=== PATIENT | male | born 1940 | race Caucasian/White ===

== ENCOUNTER 2020-01-07 22:28 | Inpatient (IN) | payer MEDICARE, OTHER ==
[~2020-01-07 22:28] MED LIST: Iopamidol-370 76% 500 ML 1 ML ONE
[2020-01-07] MEDS ORDERED: Ondansetron PF 4 MG/2 ML Vial ONE (22:59)
[2020-01-07 23:01] LABS: #Lymphocytes 0.7 thou/uL (1.20-3.40); #Monocytes 0.4 thou/uL (0.11-0.59); #Neutrophils 7.9 thou/uL (1.40-6.50); %Basophils 0.2 % (0.0-1.0); %Eosinophils 0.2 % (0.0-10.0); %Lymphocytes 8.1 % (21.0-51.0); %Monocytes 4.2 % (0.0-10.0); %Neutrophils 87.3 % (42.0-75.0); Hemoglobin 13.7 g/dL (14.0-18.0); Mean Corpuscular HGB CONC 32.4 g/dL (32.0-36.0); Mean Corpuscular Hemoglobin 31.7 pg (27.0-31.0); Mean Corpuscular Volume 97.8 fL (78.0-98.0); Mean Platelet Volume 7.5 fL (7.4-10.4); Platelet Count 215 thou/uL (130-400); RBC Distribution Width 12.8 % (11.5-14.5); Red Blood Cell (RBC) Count 4.32 mill/uL (4.70-6.10); White Blood Cell (WBC) Count 9.1 thou/uL (4.8-10.8)
[2020-01-07 23:21] LABS: ALT (SGPT) 7 U/L (8-55); AST (SGOT) 13 U/L (5-34); Albumin 4.1 g/dL (3.4-4.8); Alkaline Phosphatase 143 U/L (40-110); Anion Gap 15 mmol/L (10-20); BUN (Urea Nitrogen) 34 mg/dL (8.4-25.7); Bilirubin, Total 1.6 mg/dL (0.2-1.2); Calc. Creatinine Clearance 0 mL/min (70-130); Calcium 9.1 mg/dL (7.8-10.44); Carbon Dioxide 30 mmol/L (23-31); Chloride 94 mmol/L (98-107); Estimated GFR-MDRD 37; Globulin 3.4 g/dL (2.4-3.5); Glucose 266 mg/dL (83-110); Potassium 4.3 mmol/L (3.5-5.1); Protein, Total 7.5 g/dL (5.8-8.1); Sodium 135 mmol/L (136-145)
[2020-01-07] MEDS ORDERED: Succinylcholine Chloride 20 MG/ML 10 ml SYRINGE FS ONE (23:21)
[2020-01-07] MEDS ORDERED: fentaNYL Citrate/PF 2,000 MCG in Sodium Chloride 0.9% 60 ML IV SCH (23:37)
[2020-01-07] MEDS ORDERED: Fentanyl 100 MCG/2 ML VIAL ONE (23:38)
[2020-01-07] MEDS ORDERED: Piperacillin/Tazobactam 4.5 GM VIAL ONE (23:41)
[2020-01-07] MEDS ORDERED: Vancomycin 1 GM/200 ML BAG ONE (23:41)
[2020-01-07] MEDS ORDERED: Midazolam HCl 5 mg/ml Vial ONE (23:42)
[2020-01-07] MEDS ORDERED: Norepinephrine 8 MG/0.9% NS 250 ML ONE (23:44)
[2020-01-07] MEDS ORDERED: Pantoprazole 40 MG VIAL ONE (23:56)
[2020-01-08 00:05] LABS: Actual Bicarbonate (HCO3a) 20.2 mEq/L (22-28); Analyzer IN Cardio ER; Base Excess (BEa) -9.4 mEq/L (-2.0 to +3.0); Carboxyhemoglobin (COHb) 0.8 gm% (0.0-3.0); Hemoglobin (Hb) 12.5 g/dL (14.0-18.0); O2 Tension (PaO2), arterial 93.5 mmHg (> 70.0); Potassium - ABG Lab 3.92 mmol/L (3.70-5.30)
[2020-01-08] MEDS ORDERED: methylPREDNISolone Sod Succ/PF 125 MG/2 ML VIAL ONE (00:06)
[2020-01-08] MEDS ORDERED: diphenhydrAMINE 50 MG/ML VIAL ONE (00:06)
[2020-01-08] MEDS ORDERED: Famotidine/PF 20 mg/2ml Vial ONE (00:06)
[2020-01-08] MEDS ORDERED: methylPREDNISolone Sod Succ 40 MG VIAL ONE (00:07)
[2020-01-08 00:15] LABS: pH, Arterial 7.14 (7.35-7.45)
[2020-01-08] MEDS ORDERED: Pantoprazole 80 MG, Admixture Fee 1 EACH in Sodium Chloride 0.9% 100 ML IVPB SCH (00:15)
[2020-01-08 00:16] LABS: ALV-art Gradient 543.125 (0-20); CO2 Tension 61.1 mmHg (35.0-45.0); Puncture Site RBA
[2020-01-08] MEDS ORDERED: Magnesium 2 GM/50 ML BAG (IN WATER) ONE (00:31)
[2020-01-08 00:36] LABS: Bilirubin Negative (Negative); Blood, Urine Negative (Negative); Clarity Turbid (Clear); Glucose, Urine (Dipstick) 50 mg/dL (Negative); Leukocyte Negative Leu/uL (Negative); Nitrite Negative (Negative); Protein, Urine (Dipstick) 30 mg/dL (Neg-Trace); Squamous Epithelial 0-3 HPF (0-3); Urobilinogen 3 mg/dL (Less than 2)
[2020-01-08 00:37] LABS: Bacteria/HPF 1+ HPF (None Seen)
[2020-01-08 01:43] LABS: INR-International Normal Ratio 1.8; PTT 28.4 sec (22.9-36.1); Prothrombin Time 20.4 sec (12.0-14.7)
[2020-01-08] MEDS ORDERED: HUMAN PROTHROMBIN COMPLX IV SCH (01:45)
[2020-01-08] MEDS ORDERED: HUM PROTHROMBIN CPLX IV SCH (01:45)
[2020-01-08] MEDS ORDERED: [UNRECOGNIZED DRUG - OTHER] IV SCH (01:45)
[2020-01-08 02:12] LABS: Hemoglobin 12.3 g/dL (14.0-18.0)
[2020-01-08 02:13] LABS: Platelet Count 199 thou/uL (130-400)
[2020-01-08] MEDS ORDERED: Acetaminophen 650 MG Suppository PR PRN (03:18)
[2020-01-08] MEDS ORDERED: Ondansetron PF 4 MG/2 ML Vial IVP PRN (03:18)
[2020-01-08] MEDS ORDERED: CCU Electrolyte Replacement 1 EACH IVPB ONE (03:18)
[2020-01-08] MEDS ORDERED: Acetaminophen 650 MG/20.3 ML UDCUP PO PRN (03:18)
[2020-01-08] MEDS ORDERED: Ondansetron ODT 4 MG TAB PO PRN (03:18)
[2020-01-08] MEDS ORDERED: SYSTANE 3.5 GM TUBE EA EYE PRN (03:18)
[2020-01-08] MEDS ORDERED: DISCONTINUE PREVIOUS NARCOTIC PAIN MEDICATIONS AND BENZODIAZEPINES FS SCH (03:27)
[2020-01-08] MEDS ORDERED: Fentanyl BOLUS 250 ML IVPB PRN (03:27)
[2020-01-08] MEDS ORDERED: Lorazepam 2 MG/ML VIAL SLOW IVP PRN (03:27)
[2020-01-08] MEDS ORDERED: Morphine 2 MG/ML SYRINGE SLOW IVP PRN (03:27)
[2020-01-08] MEDS ORDERED: Propofol 1,000 MG/100 ML VIAL IV PRN (03:27)
[2020-01-08] MEDS ORDERED: fentaNYL Citrate/PF 2,000 MCG in Sodium Chloride 0.9% 60 ML IV SCH (03:27)
[2020-01-08] MEDS ORDERED: Propofol BOLUS 1,000 MG/100 ML VIAL IV PRN (03:27)
[2020-01-08] MEDS ORDERED: Potassium Phosphate 15 MMOL in Sodium Chloride 0.9% 250 ML 250 ML IV PRN (03:30)
[2020-01-08] MEDS ORDERED: Potassium Phosphate 12 MMOL in Sodium Chloride 0.9% 250 ML 250 ML IV PRN (03:30)
[2020-01-08] MEDS ORDERED: Potassium Phosphate 9 MMOL in Sodium Chloride 0.9% 100 ML IVPB PRN (03:30)
[2020-01-08] MEDS ORDERED: Potassium Chloride 20 MEQ TAB PO PRN (03:30)
[2020-01-08] MEDS ORDERED: Magnesium 2 GM/50 ML 2 GM in Premix Bag 1 BAG IVPB PRN (03:30)
[2020-01-08] MEDS ORDERED: PHOS-NAK 1 PKT PACK PO PRN ×2 (03:30)
[2020-01-08] MEDS ORDERED: Potassium Chloride 40 MEQ in Sodium Chloride 0.9% 250 ML 250 ML IVPB PRN (03:30)
[2020-01-08] MEDS ORDERED: Potassium Chloride 40 MEQ in Premix Bag 1 BAG IVPB PRN (03:30)
[2020-01-08] MEDS ORDERED: Magnesium Oxide 400 MG TAB PO PRN ×2 (03:30)
[2020-01-08] MEDS ORDERED: CCU ELECTROLYTE REPLACEMENT PROTOCOL FS PRN (03:30)
[2020-01-08] MEDS ORDERED: Ventilator Sedation Protocol 1 EACH FS SCH (03:30)
[2020-01-08 03:35] VITALS: BMI 30.6
[2020-01-08] MEDS: Lactated Ringer's 1,000 ML IV SCH ×2 (03:49→12:33)
--- NOTE | 2020-01-08 04:09 | PDOC.FPRHP ---
- History of Present Illness Chief Complaint: SOB History of Present Illness: 79 yo M w/ pmh of parkinson's, dementia, hypotension, HLD, and JANESSA came in with reported dyspnea on BIPAP. Pt clinical picture quickly worsened upon arrival to ER. Per ER doc was quickly intubated. Stated had to suction out 2L gastric/ bloody contents before could succesfully intubate. Pt was intubated upon evaluation. History was obtained from pt . States that about a week ago started having some trouble swallowing. Reports had bout of diarrhea on Saturday which resolved. States that has been constipated the last 3 days but had 2 small BM earlier today. States that ealier today started having lots of trouble not being able to swallow. Didn't eat much other than some broth and crackers. Pt had PNA tx outpatient dx about 5 wks ago. Got 10 days of abx and states had resolved. Saw his PCP around 3:30 that day who said lungs sounded clear. Around supper time 1800 pt stated had little choking spell and pt stated even water he was drinking was coming back up. Pt then started to coughing up brown stuff per and called EMS. ED Course: Phyllis Vicente called quickly after arrival. ROSC obtained. Epi and bicarb given. 2L of gastric contents suctioned prior to intubation. Pt intubated. Started on Vanc and Zosyn. - Allergies/Adverse Reactions Allergies Allergy/AdvReac Type Severity Reaction Status Date / Time clopidogrel [From Plavix] Allergy Unverified 01/07/20 23:37 iodine Allergy Unverified 01/07/20 23:37 Sulfa (Sulfonamide Allergy Unverified 01/07/20 23:37 Antibiotics) - Home Medications Comments: Atorvastatin 20 mg daily , Furosemide 40 mg daily, Tamsulosin .4 mg daily, Buproprion 150 mg daily, Citalopram 10 mg daily, Namenda XR 28 mg daily , Olanzapine 7.5 mg daily, Xarelto 15 mg daily, Midodrine 10 mg TID, Pramipexole .25 mg BID, Rasagiline 1mg daily, Rytary 48.75mg-195mg BID - History This history was obtained from ER records and PMHx: Parkinsons, Dementia, Hypotension, JANESSA, HLD PSHx: R. Knee surgery, Bilateral Shoulder Surgery, Back Surgery, Stent placed in R. leg (long time ago) FHx: Noncontributory Social: Denied any smoking, Reported occasional drinking, denied any illicit drug use - Review of Systems ROS unobtainable: due to endotracheal tube - Vital signs BP: [] HR: [] RR: [] Tmax: [] Pox: []% on [] Wt: [] - Physical Exam -Constitutional: Pt intubated and sedated HEENT: good dention -HEENT: old brown remnant of gastric contents noted in mouth and in gastric tube Neck: supple, trachea midline, no JVD, no thyromegaly -Heart: Sinus tachycardia, no murmurs or gallops noted. Normal rhythm -Lungs: Diffuse crackles and rales noted. Decreased air movement in all lobes. -Abdomen: Severely distended. Hard on palpation. No bowel sounds noted. Musculoskeletal: normal structure -Neurological: Unable to fully assess as patient is intubated and sedated Skin: no rash/lesions, good turgor -Skin: No edema noted Heme/Lymphatic: no unusual bruising or bleeding -Psychiatric: Unable to assess 2/2 intubation. FMR H&P: Results - Labs Result Diagrams: 01/08/20 04:10 01/08/20 04:10 Lab results: WBC 9.1 thou/uL (4.8-10.8) 01/07/20 22:45 Hgb 12.3 g/dL (14.0-18.0) L 01/08/20 01:56 Hct 39.7 % (42.0-52.0) L 01/08/20 01:56 MCV 97.8 fL (78.0-98.0) 01/07/20 22:45 Plt Count 199 thou/uL (130-400) 01/08/20 01:56 Neutrophils % 87.3 % (42.0-75.0) H 01/07/20 22:45 ABG pH 7.14 (7.35-7.45) L* 01/08/20 00:04 ABG pCO2 61.1 mmHg (35.0-45.0) H* 01/08/20 00:04 ABG pO2 93.5 mmHg (> 70.0) H 01/08/20 00:04 Sodium 135 mmol/L (136-145) L 01/07/20 22:45 Potassium 4.3 mmol/L (3.5-5.1) 01/07/20 22:45 Chloride 94 mmol/L (98-107) L 01/07/20 22:45 Carbon Dioxide 30 mmol/L (23-31) 01/07/20 22:45 BUN 34 mg/dL (8.4-25.7) H 01/07/20 22:45 Creatinine 1.79 mg/dL (0.7-1.3) H 01/07/20 22:45 Glucose 266 mg/dL (83-110) H 01/07/20 22:45 Lactic Acid 3.0 mmol/L (0.5-2.2) H 01/08/20 01:26 Calcium 9.1 mg/dL (7.8-10.44) 01/07/20 22:45 Total Bilirubin 1.6 mg/dL (0.2-1.2) H 01/07/20 22:45 AST 13 U/L (5-34) 01/07/20 22:45 ALT 7 U/L (8-55) L 01/07/20 22:45 Alkaline Phosphatase 143 U/L (40-110) H 01/07/20 22:45 B-Natriuretic Peptide 85.3 pg/mL (0-100) 01/07/20 22:45 Serum Total Protein 7.5 g/dL (5.8-8.1) 01/07/20 22:45 Albumin 4.1 g/dL (3.4-4.8) 01/07/20 22:45 Urine Ketones 10 mg/dL (Negative) A 01/08/20 00:00 Urine Blood Negative (Negative) 01/08/20 00:00 Urine Nitrite Negative (Negative) 01/08/20 00:00 Ur Leukocyte Esterase Negative Kalpana/uL (Negative) 01/08/20 00:00 Urine RBC 4-6 HPF (0-3) A 01/08/20 00:00 Urine WBC 4-6 HPF (0-3) A 01/08/20 00:00 Ur Squamous Epith Cells 0-3 HPF (0-3) 01/08/20 00:00 Urine Bacteria 1+ HPF (None Seen) A 01/08/20 00:00 - EKG Interpretation EKG: Sinus tachycardia, some old infarct changes noted - Radiology Interpretation CT scan - abdomen Status: image reviewed by me, report reviewed by me Additional comment: [facility] report CT Chest, Abdomen, Pelvis 1. In the chest there is volume loss on the right. Moderate consolidated airspace disease at the lung bases more prominent on the right may be related to a combination of atelectasis and/or pneumonia. There are additional scattered multifocal areas of alveolar and ground glass opacities throughout both lungs which could be related to edema although an underlying infectious process particular viral or to be difficult to exclude. 2. Additionally there are findings in the abdomen concerning for small bowel obstruction w/ a transition zone in the left mid abdomen. 3. POssible thrombosis/occlusion of the proximal right iliac vein despite stent present. CT scan - chest Status: image reviewed by me CT scan - pelvis Status: image reviewed by me, report reviewed by me Chest x-ray Status: image reviewed by me (Awaiting final report. Some bowel distention noted. Decreased lung volume space. No acute consolidation noted), pending CT scan - head Status: image reviewed by me (No acute intracranial abnormality noted), pending FMR H&P: A/P - Problem List (1) Septic shock Current Visit: Yes Status: Acute Code(s): A41.9 - SEPSIS, UNSPECIFIED ORGANISM; R65.21 - SEVERE SEPSIS WITH SEPTIC SHOCK (2) Aspiration pneumonia Current Visit: Yes Status: Acute Code(s): J69.0 - PNEUMONITIS DUE TO INHALATION OF FOOD AND VOMIT (3) Small bowel obstruction Current Visit: Yes Status: Acute Code(s): K56.609 - UNSP INTESTNL OBST, UNSP TO PARTIAL VERSUS COMPLETE OBST (4) GI bleed Current Visit: Yes Status: Acute Code(s): K92.2 - GASTROINTESTINAL HEMORRHAGE, UNSPECIFIED (5) Dementia Current Visit: Yes Status: Acute Code(s): F03.90 - UNSPECIFIED DEMENTIA WITHOUT BEHAVIORAL DISTURBANCE (6) Parkinsons disease Current Visit: Yes Status: Acute Code(s): G20 - PARKINSON'S DISEASE (7) JANESSA (obstructive sleep apnea) Current Visit: Yes Status: Acute Code(s): G47.33 - OBSTRUCTIVE SLEEP APNEA ( ADULT) (PEDIATRIC) (8) Hypotension Current Visit: Yes Status: Acute (9) Blood glucose elevated Current Visit: Yes Status: Acute Code(s): R73.9 - HYPERGLYCEMIA, UNSPECIFIED (10) Hyperbilirubinemia Current Visit: Yes Status: Acute Code(s): E80.6 - OTHER DISORDERS OF BILIRUBIN METABOLISM (11) NUSRAT (acute kidney injury) Current Visit: Yes Status: Acute Code(s): N17.9 - ACUTE KIDNEY FAILURE, UNSPECIFIED - Plan #Septic Shock 2/2 Aspiration PNA and SBO -Pt tachypnic and tachycardic upon presentation to ER. Pt on BIPAP initially and then proceeded to code. ROSC obtained and was obtained and placed on levophed drip for pressure support. 2L of gastric contents suctioned prior to intubation. reported suspected aspiration episodes over the last few days -Vanc and Zosyn continued for abx coverage -Blood and urine cx obtained. -Levophed gtt for pressure support -3L NS bolus infused. Continue LR@120. -LA initally normal. will repeat and trend as needed. -COVID swab obtained. Ferritin and LDH ordered. CRP and Procalcitonin ordered. Suspect more bacterial in nature related to aspiration. -Pulm Consluted- Dr. Cabrera appreciate recs #Acute Hypoxic Resp Failure -2/2 above -Intubated. ABG post intubation- pH 7.14, pCO2 61.1, pO2 93.5. Will repeat ABG -Pulm Consulted #Code Blue with Rosc. rop initially normal. Will repeat at this time. #SBO -CT abdomen shows concern for SBO. Gastric tube in place. -2L gastric contents suctioned during intubation. -Consult General Surgery in AM #Upper GI bleed -Possible concern for GI bleed with gastric contents suctioned. -Hgb 13.7->12.3. -Protonix IV 80 mg -Continue to trend Hgb with CBC. If continues to drop or if more pawan blood noted in gastric suction may consider GI consult. -Held home xarelto #Hyperbilirubinemia -BIli elevated w/ concern for SBO and Abdomen pathology. -Will get RUQ for further evaluation #NUSRAT vs CKD -Unsure of baseline Cr. Cr 1.79. -Continue to monitor with CMP. 3L NS bolus in ER. LR@120 IVF per above -Likely 2/2 infection and dehydration #Hypotension -Pt on midodrine at home. Held as on levophed gtt for pressure support #Dementia/Parkinsons -On sedation. Held home meds at this time. #HLD -continue home meds #Hx of Stent in R. Leg -CT shows stent in R iliac with possible thrombosis -Holding home xarelto 2/2 concerns above GERDppx: Protonix DVTppx; SCDs, held home xarelto Dispo: Pt likely had some aspiration episodes at home from gastric contents from SBO causing Acute Hypoxic Resp Failure and Code Blue. Rosc obtained. Will continue workup and tx for septic shock. Pulm consulted. Consult General surgery in AM for SBO. If continue to note blood or Hgb acutely drops would consider GI consult. FMR H&P: Upper Level - Plan Date/Time: 01/08/20 0407 I, [], have evaluated this patient and agree with findings/plan as outlined by software development intern resident. Pertinent changes/additions are listed here. Addendum - Attending - Attending Attestation Date/Time: 01/08/20 5127 I personally evaluated the patient and discussed the management with Dr. Mcadams I agree with the History, Examination, Assessment and Plan documented above with any addition or exceptions noted below -79 yo M with h/o parkinson's, dementia, HLD, and JANESSA came in with reported dyspnea on BIPAP. Patient continued to decompensate and had cardiac arrest in ER; was intubated; received epi and ROSC was achieved. 2 L of gastric contents suctioned out. History was obtained from pt . States that about a week ago started having some trouble swallowing. Reports had bout of diarrhea on Saturday which resolved. States that has been constipated the last 3 days but had 2 small BM earlier today. States that ealier today started having lots of trouble not being able to swallow. Didn't eat much other than some broth and crackers. Pt had PNA tx outpatient dx about 5 wks ago. Got 10 days of abx and states had resolved. Saw his PCP around 3:30 that day who said lungs sounded clear. Around supper time 1800 pt stated had little choking spell and pt stated even water he was drinking was coming back up. Pt then started to coughing up brown stuff per and called EMS. PMH/PSH/Meds/SH reviewed and agree with resident' s documentation. Afebrile. P130s BP 103/78 Exam repeated by me and agree with resident's findings. Labs: wbc=9.1, h/h=13.7/42.2, JVQ=446,inr=1.8, Br=601, K= 4.3, Cl=94, CO2=30, BUN/CR=34/1.79, Lactic acid=3.0, tbili=1.6, ABG=7.14/61/93/ 20 CXR- bibasilar infiltrates. CT dissection- bibasilar consolidations R>L; dilated proximal small bowel with transition point in central abdomen. A/P: 1) Acute hypoxic resp failure- Admit to ICU. Continue vent support. Pulmonary consulted. 2) Hypotension- improved with pressors. Wean as tolerated. 3) Probable aspiration pneumonia - continue abx. Swallow study if recovers. 4) Possible small bowel obstruction- continue NGT decompression; consider surgery consultation
[2020-01-08 04:33] LABS: Hemoglobin A1c 6.5 % (4.0-6.0)
[2020-01-08 04:53] LABS: Troponin I 0.252 ng/mL (< 0.028)
[2020-01-08] MEDS: Piperacillin/Tazobactam 3.375 GM in Sodium Chloride 0.9% 100 ML IVPB SCH ×3 (04:53→18:11)
[2020-01-08 04:57] LABS: ALT (SGPT) Less than 7 U/L (8-55); AST (SGOT) 18 U/L (5-34); Albumin 3.4 g/dL (3.4-4.8); Alkaline Phosphatase 113 U/L (40-110); Anion Gap 17 mmol/L (10-20); BUN (Urea Nitrogen) 31 mg/dL (8.4-25.7); Bilirubin, Total 1.4 mg/dL (0.2-1.2); Calc. Creatinine Clearance 56 mL/min (70-130); Calcium 8.3 mg/dL (7.8-10.44); Carbon Dioxide 26 mmol/L (23-31); Chloride 101 mmol/L (98-107); Estimated GFR-MDRD 36; Globulin 2.8 g/dL (2.4-3.5); Glucose 217 mg/dL (83-110); Potassium 4.7 mmol/L (3.5-5.1); Protein, Total 6.2 g/dL (5.8-8.1); Sodium 139 mmol/L (136-145)
[2020-01-08] MEDS ORDERED: Dextrose 5% in Water 1,000 ML IV PRN (05:23)
[2020-01-08] MEDS ORDERED: Dextrose 50% Abboject 50 ML SYRINGE SLOW IVP PRN (05:23)
[2020-01-08] MEDS ORDERED: HumaLOG 300 UNITS/3 ML VIAL SC PRN (05:23)
[2020-01-08 05:51] LABS: Band 18 % (5-11); Eosinophils 6 % (0-10); Hemoglobin 13.4 g/dL (14.0-18.0); Lymphocytes 25 % (21-51); MDiff Complete? YES; Mean Corpuscular HGB CONC 33.9 g/dL (32.0-36.0); Mean Corpuscular Hemoglobin 33.3 pg (27.0-31.0); Mean Corpuscular Volume 98.2 fL (78.0-98.0); Mean Platelet Volume 7.9 fL (7.4-10.4); Metamyelocyte 9 % (0-0); Monocytes 5 % (0-10); Myelocyte 13 % (0-0); Neutrophil 24 % (42-75); Platelet Count 176 thou/uL (130-400); RBC Distribution Width 12.8 % (11.5-14.5); Red Blood Cell (RBC) Count 4.03 mill/uL (4.70-6.10); White Blood Cell (WBC) Count 2.4 thou/uL (4.8-10.8)
[2020-01-08 05:55] VITALS: TEMP 97.3
[2020-01-08] MEDS: HumaLOG 300 UNITS/3 ML VIAL SC PRN ×2 (06:26→12:50)
--- NOTE | 2020-01-08 07:30 | RAD ---
CHEST 1 VIEW: Date: 01/07/2020 HISTORY: Nausea and vomiting. COMPARISON: None. FINDINGS: The right hemidiaphragm is elevated. Atelectasis to both lower lobes. No definite confluent air space consolidation, pneumothorax, or effusion. There is felt to be interposition of bowel within the righ t and left hemidiaphragms, and less likely free intraperitoneal gas. Mild gaseous distention of the c olon. IMPRESSION: 1. Chronic elevation right hemidiaphragm. 2. Lower lobe atelectasis. 3. Mild dilatation of the colon may reflect ileus or less likely large bowel obstruction. 4. Likely interposition of bowel between the right and left hemidiaphragms and the liver and spleen, respectively, less likely free air. POS: HOME
--- NOTE | 2020-01-08 08:15 | CT ---
PRELIMINARY REPORT/[facility]/EMERGENCY AFTER HOURS PROCEDURE Receipt of this report by the clinical staff was confirmed with Justin Rodriguez DO by Benton Case on Jan 08, 2020 01:49:00 CDT. Addendum electronically signed by Rosi Case on January 08, 2020 1:49:28 AM CDT EXAM: CT Chest with Intravenous Contrast. CT Abdomen and Pelvis with Intravenous Contrast CLINICAL HISTORY: Vomited on scene. reports n/v started at 1930 with 20 episodes. Hx dementia. 82% RA, 92% with 6L NC. Audible upper rhonchi. 100/60, given 200 mL NS. BG 245. Abd rigid, nontender, nondistended. Hx Parkinson's, dementia, a fib, CHF. Arrived altered on CPAP history per patient's is that patient presented short of breath on exam patient began to code was found unresponsive in room cardiac arrest was determined. CPR was done patient had [place] ROSC after being suctioned and being placed on ventilation TECHNIQUE: Axial computed tomography images of the chest, abdomen and pelvis with intravenous contrast. CONTRAST: With; 60ML ISOVUE 370 COMPARISON: None provided. FINDINGS: CHEST: LUNGS: There is an endotracheal tube above the juliette. There is an enteric tube present. There is moderate consolidated airspace disease in the right lower lobe in the medial left lower lobe with additional scattered multifocal areas of groundglass and consolidative airspace disease throughout trixie th lungs. This could be related to edema however an infectious etiology, particularly viral or could also have this appearance. There is elevation of the right hemidiaphragm. PLEURAL SPACES: No pleural effusion. No pneumothorax. HEART AND MEDIASTINUM: No cardiomegaly. No significant pericardial effusion. LYMPH NODES: No lymphadenopathy. ABDOMEN AND PELVIS: LIVER: Mild diffuse hepatic steatosis. No focal lesions. GALLBLADDER AND BILE DUCTS: Unremarkable. No calcified stone. No ductal dilation. PANCREAS: Unremarkable. SPLEEN: Unremarkable. ADRENAL GLANDS: Unremarkable. KIDNEYS, URETERS, AND BLADDER: Mild bilateral renal cortical thinning and atrophy. No hydronephrosis or nephrolithiasis. No ureteral or bladder calculi. STOMACH AND BOWEL: There is some distention of fluid-filled small bowel with a transition zone in the left mid abdomen s een on series 2 image 189. Small bowel obstruction is of some concern. APPENDIX: No CT evidence for appendicitis. PERITONEUM: No free fluid. No free air. LYMPH NODES: No lymphadenopathy. REPRODUCTIVE: Unremarkable as visualized. VASCULATURE: No aneurysm or dissection. There is a stent within the right common iliac vein which does not opacif y and may be thrombosed. BONES AND SOFT TISSUES: No acute osseous abnormality. The soft tissues are unremarkable. IMPRESSION: 1. In the chest there is volume loss on the right. Moderate consolidated airspace disease at the kurtis ng bases more prominent on the right may be related to a combination of atelectasis and/or pneumonia. There are additional scattered multifocal areas of alveolar and groundglass opacities thr oughout both lungs which could be related to edema although an underlying infectious process particular viral or be difficult to exclude. 2. Additionally there are findings in the abdomen concerning for small bowel obstruction with a schaefer sition zone in the left mid abdomen. 3. Possible thrombosis/occlusion of the proximal right iliac vein despite stent present. ELECTRONICALLY SIGNED BY: Cherry Honeycutt D.O. Jan 08, 2020 1:44:49 AM CDT This report is intended for review by the ordering physician only, in accordance of law. If you recei ve this report in error, please call [facility] at [phone]. FINAL REPORT EMERGENCY AFTER HOURS CT ANGIOGRAM CHEST AND ABDOMEN WITH IV CONTRAST AND 3D RECONSTRUCTIONS: HISTORY: Patient is post cardiac arrest. Vomited twice. Audible rhonchi in the upper lung zones. Shortness of breath. Patient found unresponsive. CPR performed. COMPARISON: None. IMPRESSION: 1. Endotracheal tube noted in place above the level of the juliette. Nasogastric tube noted in place wi th tip in the body of the stomach. 2. Bibasilar consolidation much greater on the right with additional scattered ground-glass densities and patchy parenchymal density seen throughout the lungs bilaterally. Findings may be related to infectious process and possibly atypical infectious process. Viral pneumonitis in the correct clinica l scenario is a possibility. Areas of consolidation could also be secondary to aspiration pneumonitis superimposed on infectious process. There is suggestion of small amount of debris in the right bronchus intermedius, but this may be attributable to expiratory phase of imaging limiting adequate evaluation. 3. Volume loss right hemithorax with elevation right hemidiaphragm. 4. The thoracic and abdominal aorta are normal in caliber without evidence of an aortic dissection. 5. Pulmonary arteries are not well opacified for evaluation of pulmonary emboli. 6. Dilated loops of small bowel proximally measuring up to 3.7 cm in diameter with evidence of a schaefer sition point in the central mid abdomen. Small bowel obstruction should be considered. 7. Multilevel degenerative changes in the spine with slight anterolisthesis of L4 on L5 and slight re trolisthesis of L1 on L2, L2 on L3, and L3 on L4 as well as L5 on S1. Prominent multilevel facet degenerative changes are noted. 8. Vascular stent in the right iliac vein which is incompletely imaged. There is a small amount of co ntrast in the contralateral left iliac vein. Thrombosis of the stent could not be excluded based on this exam. 9. Findings are in agreement with preliminary report by [facility]. Transcribed Date/Time: 01/08/2020 9:03 AM
[2020-01-08 08:16] LABS: Actual Bicarbonate (HCO3a) 20.9 mEq/L (22-28); Base Excess (BEa) -6.5 mEq/L (-2.0 to +3.0); CO2 Tension 48.9 mmHg (35.0-45.0); Calcium, Ionized 1.15 mmol/L (1.12-1.30); Carboxyhemoglobin (COHb) 1.2 gm% (0.0-3.0); Hemoglobin (Hb) 13.3 g/dL (14.0-18.0); O2 Tension (PaO2), arterial 76.4 mmHg (> 70.0); Potassium - ABG Lab 3.98 mmol/L (3.70-5.30)
--- NOTE | 2020-01-08 08:23 | RAD ---
PORTABLE SUPINE CHEST: HISTORY: Post intubation. COMPARISON: 01/07/2020. FINDINGS: Elevated right hemidiaphragm again noted. There are bilateral lower lung infiltrates with confluent alveolar opacities bilaterally. Streaky opacity in the left lung base may also represent coexisting atelectasis. ET tube has tip above juliette. Probable small effusions. IMPRESSION: Bilateral infiltrates and bibasilar atelectasis and effusions. POS: AGW
[2020-01-08 08:26] LABS: Troponin I 0.309 ng/mL (< 0.028)
--- NOTE | 2020-01-08 08:30 | CON ---
DATE OF CONSULTATION: 01/08/2020 CONSULTING PHYSICIAN: Family Medicine Residents. REASON FOR CONSULTATION: The patient is intubated. The following encompasses 45 minutes of critical care time. HISTORY OF PRESENT ILLNESS: This is a 79-year-old male with an extensive past medical history, who presented to the emergency room with shortness of breath. He failed BiPAP. He was intubated. Apparently, he had 2 L of bloody contents extracted from the stomach by OG tube. According to the history and physical, the patient has had difficulty swallowing. It is suspected that he has probably been aspirating. At some point in the ER, he had a Code Blue, was given epinephrine and bicarbonate. He had return of spontaneous circulation. PAST MEDICAL HISTORY: 1. Parkinson's disease. 2. Dementia. 3. Chronic hypotension. 4. JANESSA. 5. Hyperlipidemia. PAST SURGICAL HISTORY: 1. Right knee surgery. 2. Bilateral shoulder surgery. 3. Back surgery. 4. Right leg stent placement. FAMILY MEDICAL HISTORY: Unremarkable. SOCIAL HISTORY: Nonsmoker. Occasionally drinks alcohol. REVIEW OF SYSTEMS: Cannot be obtained at this time. MEDICATIONS: Prior to admission not known at this time. CURRENT INPATIENT MEDICATIONS: Reviewed. See chart. PHYSICAL EXAMINATION: VITAL SIGNS: Heart rate 117, blood pressure 80/60, temperature 98.4, and respiratory rate 24. GENERAL: The patient is obtunded. He is on fentanyl for analgesia. HEENT: Pupils are 3 mm, reactive. Oropharynx clear. NECK: No adenopathy or JVD. LUNGS: Diminished breath sounds at right base compared to left. CARDIOVASCULAR: S1 and S2, tachycardic, sinus. ABDOMEN: Obese, soft. EXTREMITIES: He has purple discoloration of his right leg posteriorly from the thigh down to just past the knee. He has a cold right foot. He does have Doppler pulse on that side. His left leg looks normal. LABORATORY DATA: White blood cell count 2.4, hematocrit 39.6, and platelet count 176, 24% neutrophils, 18% bands. INR is 1.8, and PTT 28.4. Initial blood gas; pH of 7.14, pCO2 of 61, pO2 of 93 on SIMV rate 22, tidal volume 500, PEEP 10, and FiO2 of 100%. Troponin is 3.7. Procalcitonin 6. Lactate 5. Sodium 139, potassium 4.7, chloride 101, CO2 of 26, BUN 31, creatinine 1.8, glucose 217, and total bilirubin 1.4. IMAGING DATA: Chest x-ray and CT scan show a dense right lower lobe infiltrate. ASSESSMENT: 1. Acute hypoxic respiratory failure, requiring mechanical ventilation. 2. Right lower lobe pneumonia, probably from aspiration. 3. Septic shock. 4. Possible concurrent gastrointestinal bleed, although I am not completely convinced that is the primary issue. 5. Extensive bruising down the right leg with diminished pulses indicating possible ischemia of the right leg. PLAN: 1. The patient will have a blood gas recheck this morning and I will adjust ventilator as needed. 2. Agree with vancomycin and Zosyn. 3. Vasopressor support. 4. IV fluid administration. 5. GI consultation for possible GI bleed. 6. Prognosis, poor. The patient is currently being ruled out for COVID-19 infection. Will remain in isolation until after. Job ID: [id number]
--- NOTE | 2020-01-08 08:56 | CT ---
PRELIMINARY REPORT/[facility]/EMERGENCY AFTER HOURS PROCEDURE EXAM: CT Head Without Intravenous Contrast. CLINICAL HISTORY: Vomited on scene. reports n/v started at 1930 with 20 episodes. Hx dementia. 82% RA, 92% with 6L NC. Audible upper rhonchi. 100/60, given 200 mL NS. BG 245. Abd rigid, nontender, nondistended. Hx P arkinson's, dementia, a fib, CHF. arrived altered on CPAP history per patient's is that patient presented short of breath on exam patient began to code was found unresponsive in room cardiac arrest was determined. CPR was done patient had [place] ROSC after being suctioned and being placed on venti lation TECHNIQUE: Axial computed tomography images of the head/brain without intravenous contrast. COMPARISON: None provided. FINDINGS: BRAIN: No acute intraparenchymal hemorrhage. No mass lesion. No CT evidence for acute territorial infarct. N o midline shift or extra-axial collection. Mild diffuse atrophy. VENTRICLES: No hydrocephalus. ORBITS: The orbits are unremarkable. SINUSES AND MASTOIDS: There is mucosal thickening with air-fluid levels in the maxillary sphenoid and ethmoid sinuses there is a nasogastric tube present. SOFT TISSUES: No significant facial or scalp soft tissue swelling evident. No radiopaque foreign body is seen. BONES: No acute skull fracture. IMPRESSION: No acute intracranial abnormality. ELECTRONICALLY SIGNED BY: Cherry Honeycutt D.O. Jan 08, 2020 1:37:18 AM CDT This report is intended for review by the ordering physician only, in accordance of law. If you recei ve this report in error, please call [facility] at [phone]. FINAL REPORT CT HEAD: No evidence of acute intracranial process. There are air fluid levels in the maxillary and sphenoid sinuses as described on preliminary report. I am in agreement with the preliminary report. POS: AGW
[2020-01-08] MEDS ORDERED: Vancomycin HCl 1.5 GM in Sodium Chloride 0.9% 250 ML 300 ML IVPB SCH (09:00)
[2020-01-08] MEDS ORDERED: Pantoprazole 40 MG VIAL IVP SCH (09:00)
[2020-01-08] MEDS: Norepinephrine 8 MG/0.9% NS 250 ML IVPB PRN ×2 (09:19→15:15)
[2020-01-08] MEDS ORDERED: Norepinephrine 4 MG/4 ML VIAL ONE ×3 (09:27→09:35)
[2020-01-08] MEDS ORDERED: Norepinephrine 8 MG/0.9% NS 250 ML IVPB SCH (09:33)
[2020-01-08] MEDS ORDERED: EPINEPHrine 1 MG/10 ML Abboject SYRINGE ONE ×2 (09:36→09:50)
[2020-01-08] MEDS ORDERED: Sodium Bicarb 50 MEQ/50 ML Abboject 8.4% SYRINGE ONE ×2 (09:36→09:50)
[2020-01-08 10:39] LABS: ALV-art Gradient 504.175 (0-20); pH, Arterial 7.25 (7.35-7.45)
[2020-01-08 11:28] LABS: SARS-CoV-2 MS2 Positive; SARS-CoV-2 N Gene Negative; SARS-CoV-2 S Gene Negative; SARS-CoV-2 orf1ab Negative
[2020-01-08] MEDS ORDERED: Vancomycin 1 GM in Premix Bag 1 BAG IVPB SCH (12:00)
--- NOTE | 2020-01-08 12:39 | PDOC.BPN ---
- Brief Progress Note Code blue called with immediate response Patient pulseless, compressions started Achieved ROSC, restarted levophed, stable, BPs maintaining Discussed events with & son, prognosis poor. High likelihood he will code again but they desires for him to remain full code COVID neg at this time
[2020-01-08 14:09] VITALS: BP 121/70
--- NOTE | 2020-01-08 14:59 | ULT ---
Sonogram right upper quadrant HISTORY: Right upper quadrant pain. FINDINGS: Ill-defined echogenic material is present within the midportion the gallbladder lumen. No s hadowing stones evident. Nondistention the gallbladder results in relative thickening of the gallbladder wall. Common duct is 0.5 cm. Liver is heterogeneous without focal mass or intrahepatic biliary dilatation. Small right renal cyst is noted. No free fluid in the right upper quadrant. IMPRESSION : Biliary sludge is evidence of chronic gallbladder dyskinesis. No evidence of biliary obstruction.
--- NOTE | 2020-01-08 17:12 | PDOC.EVN ---
Event Note - Event Note Event Note: I spoke with and son at length regarding patient's condition. Informed he was very ill and given his advanced parkinson's, he has low chance of meaningful recovery. They stated he would not desire to be on termite treater life support. They state they have additional family members that want to come to say their goodbyes and once that occurs plan to terminally extubate and transition to comfort measures. Patient made DNAR. Will consult hospice.
[2020-01-08] MEDS: Lorazepam 2 MG/ML VIAL SLOW IVP PRN ×2 (18:38→18:49)
[2020-01-08] MEDS: Morphine 4 MG/ML VIAL SLOW IVP PRN ×2 (18:38→18:49)
--- NOTE | 2020-01-08 19:01 | PDOC.BPN ---
- Brief Progress Note Summary Attending: Dr. Angel Arroyo Resident: Magali Oneil, PGY2 Admission Date: 01/08/20 Date of : 01/08/20 Time of : 1653 Cause of : 1. Severe septic shock 2/2 Aspiration PNA 2. Small bowel obstruction 3. Acute hypoxic respiratory failure 2/2 above Secondary Diagnoses: *document tobacco abuse if present 1. Parkinson's 2. CKD 3. HLD 4. JANESSA Hospital Course: 79 yo M with Parkinson's brought to ER for dyspnea. Coded in ER and was intubated. Admitted for severe sepsis secondary to aspiration pneumonia and small bowel obstruction. This morning went into cardiac arrest and achieved ROSC. Multiple comorbidities which contributed to poor clinical picture. Discussed poor prognosis with family who agreed to compassionate extubation which occurred at 1843 with time of at 184.
--- NOTE | 2020-01-09 07:57 | CON ---
DATE OF CONSULTATION: 01/08/2020 REASON FOR CONSULTATION: 1. Possible small bowel obstruction. 2. GI bleeding. HISTORY OF PRESENT ILLNESS: Mr. Jason Roberts is a 79-year-old male, brought to the ER by the family because of abdominal pain, nausea, and vomiting. The patient had respiratory distress and has been intubated. He is on the ventilator. There is no family available in the room. Most of the history was obtained by going through admitting history and physical. The patient has history of dementia, hypotension, and Parkinson disease. He has also history of osteoarthritis. The patient came to the ER because he had dyspnea and was already on BiPAP. The code blue was called after arrival and has been intubated. The NG tube has coffee-ground material and the canister had about mL of aspirate. An abdominal CAT scan done on admission showed dilation of the small bowel, possibly bowel obstruction. The patient has had no stool since admission. Although, he has had aspirate in the NG tube. His blood count is actually fairly stable. The CBC done today shows no further drop from admission. On admission, his CBC showed WBC of 9100, hemoglobin 13.7, and hematocrit 42.2. Today, the hemoglobin 13.4 and hematocrit 39.6. The patient's NG tube is draining basically dark coffee-ground material. No relevant history. MEDICAL ILLNESSES: 1. Parkinson disease. 2. Osteoarthritis. 3. Dementia. 4. Hyperlipidemia. 5. Depression and anxiety. 6. Right knee surgery. 7. Bilateral shoulder surgery. 8. Back surgery. 9. Peripheral vascular disease, status post stent placement in the right leg. FAMILY HISTORY: Not able to obtain. SOCIAL HISTORY: No history of smoking or alcohol intake. MEDICATIONS: Reviewed. REVIEW OF SYSTEMS: Not able to obtain. PHYSICAL EXAMINATION: GENERAL: He is on the ventilator, on a sedation. VITAL SIGNS: Actually very stable. He has an NG tube draining coffee-ground material. He is afebrile. His pulse rate is 117 and blood pressure is 90/60. HEENT: Conjunctivae are clear. NECK: Supple. No adenitis or thyromegaly noted. CARDIOVASCULAR: First and second heart sounds. LUNGS: Clear to auscultation. ABDOMEN: Distended, but soft. Abdomen is nontender. His bowel sounds almost totally absent, I could not hear any bowel sounds. EXTREMITIES: Show some ecchymotic areas over the right knee and right lower leg. Also the extremities are very cold to touch on both sides. Pedal pulses are 2+ on both sides. LABORATORY DATA: Shows from this morning CBC; WBC 2400, hemoglobin 13.4, hematocrit 39.6, and platelet count is 176,000. His polymorphs 87, banding is 18%, and lymphocytes 8.1. Serum chemistries show glucose 223 and lactic acid is 4. Troponin 0.309. Sodium is 139, potassium is 4.7, chloride is 101, bicarb is 26, BUN is 31, creatinine is 1.81, glucose is 217, AST is 18, ALT is 7, alkaline phosphatase is 113, and albumin is 3.4. Abdominal CAT scan shows evidence of possibly SBO as well as dilation of the small bowel. IMPRESSION: 1. Respiratory failure on the ventilator. 2. Parkinson disease. 3. Dementia. 4. Chronic hypotension. 5. Osteoarthritis. 6. Hyperlipidemia. 7. Possible gastrointestinal bleeding CBC. 8. Possible small bowel obstruction. PLAN: 1. Serial H and H. 2. Transfuse as needed. 3. IV PPI. 4. EGD possibly tomorrow if the family is agreeable. 5. Prognosis appears very poor at present time. If family is agreeable, I will plan for EGD tomorrow. I will make further recommendation after EGD. Job ID: [id number]
--- NOTE | 2020-01-09 13:56 | EKG ---
Test Reason : Blood Pressure : / mmHG Vent. Rate : 094 BPM Atrial Rate : 094 BPM P-R Int : 206 ms QRS Dur : 076 ms QT Int : 354 ms P-R-T Axes : 044 021 099 degrees QTc Int : 442 ms Undetermined rhythm Possible Anterior infarct , age undetermined Abnormal ECG Confirmed by ANEESH BOSWELL ([id number]), photo editor RITA ADAMSON ([id number]) on 01/09/2020 1:56:26 PM Referred By: Confirmed By:ANEESH BOSWELL
--- NOTE | 2020-01-09 15:05 | EKG ---
Test Reason : Blood Pressure : / mmHG Vent. Rate : 093 BPM Atrial Rate : 093 BPM P-R Int : 176 ms QRS Dur : 082 ms QT Int : 404 ms P-R-T Axes : 034 020 047 degrees QTc Int : 502 ms Normal sinus rhythm with sinus arrhythmia Low voltage QRS Nonspecific ST and T wave abnormality Prolonged QT Abnormal ECG Confirmed by GRISELDA ACOSTA, FAM ([id number]), video effects editor RITA ADAMSON ([id number]) on 01/09/2020 3:05:03 PM Referred By: Confirmed By:FAM VILLALOBOS MD
== END 2020-01-08 18:48 | disposition expired | DRG 871 ==
LOC: ERS 22:28 → CCU 01-08 02:50
PROVIDERS: ADMIT Family Medicine; ATTEND Family Medicine
PROC: 5A09357 Assistance with Respiratory Ventilation, Less than 24 Consecutive Hours, Continuous Positive Airway Pressure (ICD-10-PCS; principal; 2020-01-08)
PROC: 0BH17EZ Insertion of Endotracheal Airway into Trachea, Via Natural or Artificial Opening (ICD-10-PCS; 2020-01-08)
PROC: 5A1935Z Respiratory Ventilation, Less than 24 Consecutive Hours (ICD-10-PCS; 2020-01-08)
PROC: 3E033XZ Introduction of Vasopressor into Peripheral Vein, Percutaneous Approach (ICD-10-PCS; 2020-01-08)
DX: A41.9 Sepsis, unspecified organism (principal); R65.21 Severe sepsis with septic shock; J69.0 Pneumonitis due to inhalation of food and vomit; J96.01 Acute respiratory failure with hypoxia; K56.609 Unspecified intestinal obstruction, unspecified as to partial versus complete obstruction; K92.2 Gastrointestinal hemorrhage, unspecified; Z66 Do not resuscitate; Z51.5 Encounter for palliative care; Z20.828 Contact with and (suspected) exposure to other viral communicable diseases; G20 Parkinson's disease; F02.80 Dementia in other diseases classified elsewhere, unspecified severity, without behavioral disturbance, psychotic disturbance, mood disturbance, and anxiety; E78.00 Pure hypercholesterolemia, unspecified; Z96.651 Presence of right artificial knee joint; F32.9 Major depressive disorder, single episode, unspecified; G47.33 Obstructive sleep apnea (adult) (pediatric); E78.5 Hyperlipidemia, unspecified; R73.9 Hyperglycemia, unspecified; E80.6 Other disorders of bilirubin metabolism; M19.90 Unspecified osteoarthritis, unspecified site; N18.9 Chronic kidney disease, unspecified; Z88.2 Allergy status to sulfonamides; Z88.8 Allergy status to other drugs, medicaments and biological substances; Z79.01 Long term (current) use of anticoagulants; Z79.899 Other long term (current) drug therapy
CPT/HCPCS: 31500; 36415; 36416; 36556; 51702; 70450; 71045; 71275; 72191; 74175; 76705; 80053; 81003; 81015; 82728; 82805; 83036; 83605; 83615; 83880; 84145; 84484; 85014; 85018; 85025; 85049; 85610; 85730; 86140; 86850; 86900; 86901; 87040; 87086; 87635; 92950; 93005; 94002; 94660; 96361; 96365; 96366; 96368; 96375; 96376; 99292; C9113; C9132; J0171; J1200; J2060; J2250; J2270; J2405; J2543; J2920; J2930; J3010; J3370; J3475; J3490; Q9967; S0028; U0003